=== PATIENT | male | born 1980 | race Caucasian/White ===

== ENCOUNTER 2018-10-07 19:31 | Emergency (ER) | payer OTHER, SELFPAY ==
[2018-10-07 19:33] VITALS: BP 124/70; PULSE 60; RESP 15; TEMP 36.7; BMI 30.9
[2018-10-07] MEDS: Diphth,Pertuss(Acell),Tet Vac 0.5 ML Vial IM (19:48)
--- NOTE | 2018-10-07 19:55 | RAD_ITS ---
STUDY: X-RAY - LEFT RADIUS AND ULNA REASON FOR EXAM: Male, 37 years old. Injury. TECHNIQUE: 2 view(s) of the forearm. COMPARISON: None. FINDINGS: There is no demonstrated soft tissue swelling. Normal visualized radius. There is an enthesophyte arising from the olecranon in which lucencies are visualized. RAD/Forearm 2 Views IMPRESSION: Findings concerning for a fractured enthesophyte arising from the olecranon. Electronically Signed: Sabine Nava MD at 21:18 EDT Tel , Service support ,
--- NOTE | 2018-10-07 20:34 | ED.VIS.GEN ---
History of Present Illness Chief Complaint: Upper Extremity Injury Informant: Patient Onset: Today Context: Sudden Onset Timing: Continuous Current Severity: Moderate Maximum Severity: Moderate Narrative: Patient presents with injury to his left forearm. Patient is right-hand dominant. He was working on his vehicle. He states the trunk closed onto his arm. He had immediate pain. He did suffer a superficial abrasion and had some mild bleeding. He was concerned that he may have a fracture. He is not on any daily medications. He is unsure of his last tetanus. Prior similar symptoms: No Recent Illness/Hospitalization: No Past Medical History - Allergies and Home Meds Allergies/Adverse Reactions: Allergies No Known Allergies Allergy (Verified 10/07/18 19:35) Primary Care Physician: Dajuan Ponce [Primary Care Provider] - Prior records reviewed: Yes Past Medical History: None Surgical History: no surgical history Smoking Status: Never smoker Alcohol: None Drugs: None Review of Systems General: Denies: Chills, Fever, Sweats Eyes: Denies: Visual changes - bilaterally, Diplopia ENT: Denies: Rhinorrhea, Sore throat Cardiovascular: Denies: Chest pain, Palpitations Respiratory: Denies: Dyspnea, Cough, Dyspnea on exertion Gastrointestinal: Denies: Abdominal pain, Nausea, Vomiting, Diarrhea, Melena, Hematochezia Genitourinary: Denies: Dysuria, Hematuria, Frequency Musculoskeletal: Denies: Back pain, Extremity Pain Skin: Denies: Rash, Wounds Neurological: Denies: Headache, Weakness, Numbness Physical Exam Vital Signs/Narrative: Vital Signs Temp Pulse Resp BP 10/07/18 19:33 98.1 F 60 15 124/70 H Inital Vital Signs reviewed: Yes General: Well nourished, Well developed, No Acute Distress Head: Normocephalic, Atraumatic Eyes: Perrl, EOMI ENT: Moist mucous membranes, No rhinorrhea Neck: Supple, Nontender Cardiovascular: Regular rate, Regular rhythm, No murmurs Respiratory: No distress, CTA bilaterally, Chest nontender Abdomen: Soft, Nontender, Nondistended, Normal bowel sounds Back: Nontender, Normal Inspection Extremities: No edema, Tenderness - Contusion on the dorsum of the left forearm. The pulses are normal. His compartments are soft. He is able to flex and extend without pain. Skin: Normal color, No rash Neurological: Alert, Oriented x3, Cranial nerves II-XII grossly intact, Normal Strength, Normal Sensation Psychological: Normal affect, Normal Mood Diagnostic/Tx/Re-eval - Medical Decision Making The patient's tetanus was updated. X-rays were obtained of his left forearm. There is no onset acute fracture. My suspicion is that he likely has a traumatic hematoma. His compartments are soft. His pulses are normal. He is placed in an Jarred wrap for comfort. He will continue ice and elevation. He will be discharged home. ED Disposition - Plan for ED Patient: Diagnosis: Traumatic hematoma of left forearm Instructions: Hematoma Referrals: Dajaun Ponce [Primary Care Provider] -
[2018-10-07 20:41] VITALS: BP 104/76; PULSE 63; RESP 16; O2SAT 97
== END 2018-10-07 20:47 | disposition home or self-care (01) ==
LOC: ED 20:25
PROVIDERS: Emergency Provider Emergency Medicine; Family Provider Family Medicine; PCP Family Medicine
DX: S50.12XA Contusion of left forearm, initial encounter (principal); W23.0XXA Caught, crushed, jammed, or pinched between moving objects, initial encounter; Y93.89 Activity, other specified; Y92.89 Other specified places as the place of occurrence of the external cause; Y99.8 Other external cause status
CPT/HCPCS: 73090; 90471; 90715; 99283

== ENCOUNTER → 2019-10-10 | Outpatient (CLI) | payer OTHER, SELFPAY ==
--- NOTE | 2019-10-10 08:35 | RAD_ITS ---
STUDY: X-RAY - UNILATERAL RIBS ( RIGHT ) WITH CHEST REASON FOR EXAM: Male, 38 years old. RT SIDED ANTERIOR RIB PAIN X 2 DAYS. PAIN WITH DEEP INSPIRATION. COUGH AND SOB. TECHNIQUE - RIBS: 4 view(s) of the ribs. TECHNIQUE - CHEST: Single PA view of the chest. COMPARISON: None. FINDINGS - RIBS: Normal visualized ribs without a demonstrated fracture. FINDINGS - CHEST: The lungs are clear and expanded. There is no demonstrated pleural abnormality. Normal size heart. Normal mediastinum and edna. Normal visualized pulmonary arteries. Normal visualized aortic arch and descending thoracic aorta. Normal visualized thoracic spine. Normal visualized ribs, clavicles, and shoulders. There is no demonstrated abnormality of the visualized soft tissue structures of the upper abdomen. RAD/Ribs Uni Min 3V w/PA Chest IMPRESSION: RIBS: Normal x-ray examination of the ribs. CHEST: Normal x-ray examination of the chest. Electronically Signed: Duran Lakhani, at 15:09 EDT , Service support ,
== END | disposition home or self-care (01) ==
LOC: RAD 08:30
PROVIDERS: PCP Family Medicine; Referring Provider Family Medicine; Visit Provider Family Medicine
DX: R07.89 Other chest pain (principal)
CPT/HCPCS: 71101

== ENCOUNTER → 2019-11-06 | Outpatient (CLI) | payer OTHER, SELFPAY ==
--- NOTE | 2019-11-06 08:21 | US_ITS ---
STUDY: THYROID ULTRASOUND REASON FOR EXAM: Male, 38 years old. Nodule TECHNIQUE: Ultrasound evaluation of the thyroid was performed with real-time and static toribio-scale imaging. COMPARISON: None. FINDINGS: RIGHT LOBE: The right lobe of the thyroid gland is enlarged and measures 5.8 cm x 2.3 cm x 2.0 cm. There is a heterogeneous echotexture. There are no demonstrated solid, cystic or complex lesions. LEFT LOBE: The left lobe of the thyroid gland is enlarged and measures 5.3 cm x 1.9 cm x 1.9 cm. There is a heterogeneous echotexture. There are no demonstrated solid, cystic or complex lesions. ISTHMUS: The isthmus measures 5.0 mm. The regional lymph nodes are normal. US/Thyroid IMPRESSION: Enlarged and heterogeneous thyroid. Electronically Signed: Duran Lakhani, at 10:42 EDT , Service support ,
== END | disposition home or self-care (01) ==
LOC: US 08:13
PROVIDERS: PCP Family Medicine; Referring Provider Family Medicine; Visit Provider Family Medicine
DX: E04.1 Nontoxic single thyroid nodule (principal)
CPT/HCPCS: 76536

== ENCOUNTER → 2020-03-04 | Outpatient (CLI) | payer OTHER, SELFPAY ==
[2020-03-04 15:39] VITALS: BMI 33.1
== END | disposition home or self-care (01) ==
PROVIDERS: PCP Family Medicine; Referring Provider Nurse Practitioner Family; Visit Provider Nurse Practitioner Family
DX: R68.89 Other general symptoms and signs (principal)
CPT/HCPCS: 87635; U0003

== ENCOUNTER 2021-08-24 22:38 | Emergency (ER) | payer OTHER, SELFPAY ==
[2021-08-24 22:39] VITALS: BP 145/81; PULSE 57; RESP 16; TEMP 36.1; O2SAT 100; BMI 32.5
[2021-08-24 22:43] VITALS: O2SAT 100
--- NOTE | 2021-08-24 23:10 | EDS_ITS ---
HPI History of Present Illness Chief Complaint: Cough Detail of Chief Complaint: Chlorine exposure Informant: patient Onset/Context/Timing Onset: Today and Hours Context: Sudden Onset Timing: Continuous Current Severity: Mild Maximum Severity: Mild Narrative Narrative: 40-year-old male no seen past medical or surgical history. Currently on no medications. No recent illness. Skin right open is fully opened up a container of chlorine tablets tonight while at home in his garage and inhaled s ome of the chlorine gas. Said it gave him burning sensation in his lungs he had some coughing but is starting to improve. He denies any hemoptysis. He is not currently short of breath. And he said he felt fine prior to this happening. Prior similar symptoms: No Recent Illness/Hospitalization: No PFSH PFSH Medical History no medical history no medical history Home Medications prednisone 40 mg PO DAILY 1 Days #2 tab 08/24/21 [Rx Last Taken Unknown] Allergy/AdvReac Type Severity Reaction Status Date / Time No Known Allergies Allergy Verified 08/24/21 22:41 Surgical History no surgical history no surgical history Social History Smoking Status: Never smoker ROS ROS ED ROS Narrative Denies recent illness. Review of Systems ROS Unobtainable: Denies due to encephalopathy Constitutional Constitutional ED: Denies fever(s) Eyes Eyes: Denies change in vision ENT ENT ED: Denies ear pain Cardiovascular Cardiovascular: Denies chest pain Respiratory/Chest Respiratory/Chest: Denies dyspnea Gastrointestinal Gastrointestinal: Denies abdominal pain, diarrhea, nausea or vomiting Genitourinary Genitourinary ED: Denies dysuria Musculoskeletal Musculoskeletal: Denies myalgias Integumentary Denies rash Neurologic Neurologic: Denies headache(s) Psychiatric Psychiatric: Denies depression Endocrine Endocrinology: Denies polyuria Allergic/Immunologic Allergic/Immunologic ED: Denies urticaria EXAM Physical Exam Narrative Exam Narrative: 40-year-old no acute distress. Vital signs stable afebrile. Pulse ox 9% on room air no signs hypoxia. H EENT exam unremarkable. Neck nontender no lymphadenopathy. Lungs clear to auscultation bilaterally. Heart regular rhythm no murmur. Abdomen soft nontender. Moving all 4 extremities. Calves are nontender without edema or cords. Const Vital Signs: 08/24/21 22:39 08/24/21 22:43 Temperature 96.9 F L Temperature Source Temporal Pulse Rate 57 L Respiratory Rate 16 Respiratory Effort Normal Non-Labored Respiratory Depth Normal Respiratory Pattern Normal Blood Pressure 145/81 H Blood Pressure Mean 102 Pulse Ox 100 Oxygen Delivery Method Room Air Room Air Positive well nourished and well developed; Negative for cachectic, contractures or unkempt General Appearance ED: well developed and NAD; Negative for unkempt, cachectic, contractures, cyanotic, diaphoretic or pallor Nutritional Appearance: Negative for cachectic HEENT Reports moist mucous membranes Negative for trauma or tenderness Eyes PERRL and EOMs intact bilaterally General Eye ED: Negative for pale conjunctiva or scleral icterus Neck no lymphadenopathy, supple and no JVD General: Negative for tenderness Chest Wall inspection of chest normal and palpation of chest normal Resp normal respiratory effort and clear to auscultation bilaterally Auscultation: Negative for rales, rhonchi or wheezes Cardio regular rate, regular rhythm, S1 normal heart sound, S2 normal heart sound and no murmurs GI normal to inspection, nondistended, normoactive bowel sounds, non-tender, non- distended and no masses Inspection: Negative for abdominal distention Auscultation: normoactive bowel sounds Palpation: soft; Negative for tender, guarding or rebound tenderness present Back/Spine no CVA tenderness General Back: Negative for CVA tenderness Cervical Spine: Negative for cervical spine tenderness Thoracic Spine / Upper Back: Negative for thoracic spinal tenderness Extremity normal to inspection General Extremety ED: Negative for edema or tenderness General Extremity: Negative for edema Neuro oriented x3 Sensorium / Orientation: alert; Negative for orientation impaired, lethargic or stuporous Motor Exam: strength 5/5 throughout Psych mental status grossly normal Appearance: Negative for unkempt Attitude: No agitated Mood & Affect: Negative for depressed, anxious or tearful Skin no rashes or lesions noted and no wounds General Skin Exam: Negative for jaundice or pallor MDM MDM MDM Narrative Medical decision making narrative: 40-year-old no acute distress. Vital signs stable afebrile. Exposed to chlorine. Lung exam is normal currently. He will be given 1 dose of prednisone. Discharged to home. Discharge Plan Triage Chief Complaint: Cough ED Provider: Min Swanson Dx/Rx/DC Orders Clinical Impression: Chlorine gas exposure, Acute bronchospasm Prescriptions: New prednisone 20 mg tablet 40 mg PO DAILY 1 Days Qty: 2 RF: 0 Primary Care Provider: Dajuan Ponce Referrals: Dajuan Ponce, [Primary Care Provider] - 3-5 Days if not improving Activity Restrictions/Additional Instructions: This should progressively improve. If you are still wheezing tomorrow take the second dose of prednisone around lunch or dinner time. If you are not you feel fine do not need to take it at all. This should improve and you should be no further care if you are not improving follow-up with your doctor. Disposition Disposition: Home, Self Care
[2021-08-24] MEDS: predniSONE 20 MG Tablet 40 MG PO (23:16)
[2021-08-24 23:17] VITALS: PULSE 89; O2SAT 100
== END 2021-08-24 23:18 | disposition home or self-care (01) ==
PROVIDERS: Emergency Provider Emergency Medicine; PCP Family Medicine; Visit Provider Emergency Medicine
DX: T59.4X4A Toxic effect of chlorine gas, undetermined, initial encounter (principal); J98.01 Acute bronchospasm
CPT/HCPCS: 99283